=== PATIENT | male | born 1975 | race Caucasian/White ===

== ENCOUNTER 2016-06-05 09:42 | Emergency (ER) | payer SELFPAY ==
[~2016-06-05] VITALS: Ht 175.3 cm; Wt 77.1 kg
[2016-06-05 09:45] VITALS: BP 130/82
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
== END 2016-06-05 09:52 | disposition home or self-care (01) ==
LOC: ER 09:42
DX: S13.4XXA Sprain of ligaments of cervical spine, initial encounter (principal); V89.2XXA Person injured in unspecified motor-vehicle accident, traffic, initial encounter; Y93.89 Activity, other specified; Y92.89 Other specified places as the place of occurrence of the external cause; Y99.8 Other external cause status
CPT/HCPCS: 36415; 99283